=== PATIENT | female | born 1985 | race Caucasian/White ===

== ENCOUNTER 2017-06-30 23:10 | Observation (INO) | payer OTHER, BC ==
[2017-07-01] MEDS ORDERED: Ondansetron 4 MG/2 ML SDV IVPUSH PRN (00:26)
[2017-07-01] MEDS: Lactated Ringers 1,000 ML IV SCH ×4 (00:45→16:25)
[2017-07-01 01:36] LABS: CHLORIDE,CL 108 mmol/L (98-110); SODIUM,NA 140 mmol/L (136-146)
[2017-07-01] MEDS ORDERED: Promethazine 25 MG/ML SDV IM ONE (02:03)
[2017-07-01] MEDS ORDERED: Phenazopyridine 200 MG Tab PO ONE (02:04)
[2017-07-01] MEDS ORDERED: Acetaminophen 1,000 MG in Premix Bag 1 BAG IV ONE (05:30)
[2017-07-01] MEDS ORDERED: Acetaminophen 500 MG Tab PO ONE (05:33)
[2017-07-01] MEDS ORDERED: Acetaminophen 325 MG Tab PO PRN (06:01)
[2017-07-01] MEDS ORDERED: Dextrose 5%-Lactated Ringers 1,000 ML IV SCH (09:00)
--- NOTE | 2017-07-01 10:57 | HP ---
SURGEON: Becca John M.D. DATE OF PROCEDURE: 07/01/2017 CHIEF COMPLAINT: Nausea, vomiting, and diarrhea. 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 She has had more than 10 loose stools today. She denies vaginal bleeding and denies blood in the stool. She denies any specific fever. She is having a lot of abdominal cramping and back pain. She notes good movement. PAST MEDICAL HISTORY: 1. PCOS. 2. History of HSV-2. 3. Gestational diabetes. 4. Tobacco dependence. PAST SURGICAL HISTORY: 1. in 2012. 2. in 2014. 3. Appendectomy in 2012. 4. Right oophorectomy in 1999. 5. [place] teeth extraction. 6. Tonsillectomy and adenoidectomy. MEDICATIONS: vitamin daily and glyburide 2.5 mg daily. ALLERGIES: Codeine causes hives. 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 Menses every 28 days, lasting 5 to 6 days. LMP of 01/10/2017. Last Pap smear in 2014 was normal. She has had multiple miscarriages from 2004 until 2011; in 2012 had a full-term male at 40 weeks via delivery in ; in 2014 at 40 weeks' gestational age delivered a 7-pound 15-ounce female via delivery in [place], [place]. FAMILY HISTORY: Maternal grandfather and grandmother from cancer. Mother with coronary artery disease. SOCIAL HISTORY: She smokes 5 or less cigarettes per day. Denies alcohol or illicit drug usage. REVIEW OF SYSTEMS: Has mild headache. No visual changes. She is fatigued and feels weak. She has had appropriate weight gain during the . She denies chest pain or shortness of breath. No cough. She has had loose stools for the past day, no blood in the stool. She has had nausea and vomiting. She denies abnormal vaginal discharge or vaginal bleeding. She does have dysuria and urgency. She does have generalized abdominal cramping pain and flank pain bilaterally, right more so than the left. PHYSICAL EXAMINATION: VITAL SIGNS: Temperature 98.2 and blood pressure 141/60. CARDIAC: Regular rate and rhythm. NECK: Clear to auscultation bilaterally. ABDOMEN: Gravid and obese. Mildly tender diffusely. Contractions none observed. heart tones 140s. EXTREMITIES: Trace pedal edema. CERVIX: Deferred. LABORATORY DATA: UA: Positive nitrites, sent for culture. Stool sample positive for Campylobacter jejuni. ASSESSMENT: 1. A 25 and 2-week intrauterine . 2. Bacterial gastroenteritis. 3. Urinary tract infection, possibly early pyelonephritis. PLAN: The patient is admitted for observation. IV hydrated. Received Rocephin antibiotics, which should cover both the Campylobacter and UTI. Urine culture is pending. She has been receiving antiemetics and IV Tylenol. Explained plan of care to the patient, she voiced her understanding. Continue to monitor with treatment with IV fluid hydration and IV antibiotics. Once able to tolerate clear liquids and bland diet, would anticipate discharge with oral antibiotic. Suprax has been selected, which should cover both UTI and the Campylobacter infection. REBECCA / ENRRIQUE /[id number]
[2017-07-01] MEDS ORDERED: cefTRIAXone 1 GM in Premix Bag 1 BAG IV SCH ×2 (13:00→16:00)
[2017-07-01] MEDS ORDERED: cefTRIAXone 1,000 MG in Sodium Chloride 0.9% 50 ML IV ONE (13:00)
[2017-07-01] MEDS ORDERED: Lactated Ringers 1,000 ML IV SCH (16:15)
== END 2017-07-01 18:35 | disposition home or self-care (01) ==
LOC: MW.OBCHECK 23:10 → MW.OB 23:13 → MW.OBCHECK 07-01 06:01
PROVIDERS: ADMIT Obstetrics & Gynecology; ATTEND Obstetrics & Gynecology
DX: O99.612 Diseases of the digestive system complicating pregnancy, second trimester (principal); O23.42 Unspecified infection of urinary tract in pregnancy, second trimester; B96.89 Other specified bacterial agents as the cause of diseases classified elsewhere; Z3A.25 25 weeks gestation of pregnancy
CPT/HCPCS: 36415; 59025; 80053; 81001; 82150; 82962; 83690; 85025; 87046; 87086; 87899; 96361; 96365; 96372; 96375; 96376; A9270; G0378; J0696; J2405; J2550; J7042; J7120